=== PATIENT | male | born 1935 | race Caucasian/White ===

== ENCOUNTER 2016-11-04 16:32 | Inpatient (IN) | payer OTHER ==
[~2016-11-04] VITALS: Ht 185.4 cm; Wt 76.2 kg
--- NOTE | ~2016-11-04 | D ---
[facility] [place] [address] DISCHARGE SUMMARY Name: DUKE VILLAGOMEZ Room #: 455-P [facility] IN M.R.#: [id number] Admission: 11/04/16 Attend Phys: Kamaljit Stroud MD Discharge: 11/10/16 Date of : 36 Report #: [id number] THIS REPORT FOR: //name// CC: Harini Stroud DATE OF SERVICE: 11/10/2016 TYPE OF DICTATION: Discharge summary. After xqgz-mk-baog encounter, I did see the patient and examined him on the day of discharge. DISCHARGE DIAGNOSES: 1. small-bowel obstruction managed medically. 2. Chronic constipation. 3. Diabetes. 4. 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 5. Neurogenic bladder. 6. Gastroesophageal reflux disease. 7. Chronic kidney disease. 8. Peripheral neuropathy. 9. Depression. 10. Hypokalemia, resolved. 11. Chronic suprapubic catheter. DISCHARGE MEDICATIONS: See discharge summary. HOSPITAL COURSE: The patient was admitted to the hospital secondary to a small-bowel obstruction, abdominal pain and GI and surgery teams were consulted to see the patient. The patient started on n.p.o. IV fluids and his small-bowel obstruction was managed medically and it was resolved completely. At this point, the surgery recommended that he go under aggressive treatment for constipation to continue that to prevent recurrence of small-bowel obstruction. At the same time, the patient was doing fine and he is stable and he is going home to to nursing home facility after treated. His hemoglobin is currently stable and his creatinine is 1.5, almost near baseline. <ELECTRONICALLY SIGNED> By: Harini Morgan MD 11/11/16 1438 1349 1721 Harini Morgan MD /nt
--- NOTE | ~2016-11-04 | EKG ---
[place] [address] [facility] [place] [address] ELECTROCARDIOGRAM REPORT Name: DUKE VILLAGOMEZ Piter Room #: 455-P ADM IN M.R.#: [id number] Admission: 11/04/16 Attend Phys: Kamaljit Stroud MD Discharge: Date of : 36 Report #: [id number] THIS REPORT FOR: //name// [facility] ED Test Date: 2016-11-04 Test Time: 16:53:24 Pat Name: DUKE VILLAGOMEZ Department: Room: [facility] Gender: M Sleeve Tailor: Massimo MARTINEZ : 1935 Requested By: Randi Ga Order Number: [id number] MD: Mateo Miranda Measurements Intervals [place] Rate: 91 P: -73 CT: 242 QRS: 0 QRSD: 103 T: 74 QT: 370 QTc: 456 Interpretive Statements Sinus or ectopic atrial rhythm Prolonged CT interval Nonspecific ST segment abnormality Compared to ECG 04/20/2016 15:54:48 QT interval has shortened Electronically Signed On 11-06-2016 14:06:38 TABLE SETTER by Mateo Miranda [email or web address] <ELECTRONICALLY SIGNED> By: Mateo Miranda MD, [facility] 11/06/16 1406 1653 165 Mateo Miranda MD, [facility] /EPI
--- NOTE | ~2016-11-04 | HC ---
[facility] [place] [address] CONSULTATION Name: DUKE VILLAGOMEZ Room #: 455-P [facility] IN ..#: [id number] Admission: 11/04/16 Attend Phys: Kamaljit Stroud MD Discharge: Date of : 36 Report #: [id number] THIS REPORT FOR: //name// CC: Nakul Stroud DATE OF SERVICE: 11/08/2016 REASON FOR CONSULTATION: Advanced renal insufficiency in this 81-year-old diabetic male with bilateral below the knee amputation. HISTORY OF PRESENT ILLNESS: The patient has a longstanding history of diabetes mellitus. He is a resident at [facility]. He presented to the Emergency Room on the day of admission with nausea, vomiting and diarrhea. Evaluation revealed severe obstipation effectively producing a small-bowel obstruction. The patient has been managed conservatively during the course of this hospitalization. His GI status has improved after significant enema therapy. He has also developed coffee-ground emesis and is presently on a proton pump inhibitor. He has a known history of neurogenic bladder. A renal ultrasound was performed earlier today revealing no evidence of hydronephrosis. Urinalysis has not yet been obtained. 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 MEDICATIONS ON ADMISSION: Include bisacodyl, artificial tears, aspirin, Protonix, Synthroid, Motrin, Levemir, Reglan, Carafate, potassium, Neurontin, vitamin C, Risperdal, Zofran, milk of magnesia, senna, iron, renal caps and acidophilus. ALLERGIES: Reported to AMPICILLIN, MEPERIDINE, PENICILLIN, SIMVASTATIN, SULFA. PERSONAL AND SOCIAL HISTORY: The patient is a [facility] resident. He is retired. He does not smoke, use alcohol or have any history of substance abuse. REVIEW OF SYSTEMS: Remarkable for chronic constipation and recent vomiting and diarrhea. PHYSICAL EXAMINATION: GENERAL: Reveals a well-developed, well-nourished, elderly male who appears chronically ill, but in no acute distress. VITAL SIGNS: Blood pressure 149/67, temperature 98.4, pulse 82, respirations 20. SKIN: Warm and dry. The legs are surgically absent below the knees bilaterally [address] [address] CONSULTATION Name: DUKE VILLAGOMEZ Room #: 455-P [facility] IN M.R.#: [id number] Admission: 11/04/16 Attend Phys: Kamaljit Stroud MD Discharge: Date of : 36 Report #: [id number] with well-healed stumps. There is no evidence of edema or cellulitis. There is no gross adenopathy present. HEENT: The head is normocephalic and atraumatic. The sclerae are white. The pharynx is benign. NECK: Supple. LUNGS: Villagomez are grossly clear to percussion and auscultation. CARDIOVASCULAR: Reveals a regular rate and rhythm without rub. ABDOMEN: Soft and nontender. There is a suprapubic catheter in place. A Granda catheter is draining cloudy urine. NEUROLOGIC: Reveals the patient to be a fair historian. His vision is diminished. His examination is otherwise nonfocal. LABORATORY STUDIES: Available at this time include sodium 147, potassium 3.8, chloride 111, CO2 24, BUN 53, creatinine 2.5, glucose 85. White blood cell count 7500, hemoglobin 8.3, hematocrit 24.7, platelet count 203,000. Urinalysis is not available. Renal ultrasound reveals no evidence of hydronephrosis. ASSESSMENT: Chronic kidney disease in the setting of longstanding diabetes mellitus. Previous urinalysis which is available for review dated 05/2016 reveals 2+ protein, 1+ leukocytes. ASSESSMENT AND PLAN: 1. I strongly suspect a significant element of underlying diabetic nephropathy related to his longstanding diabetes mellitus and hypertension and further suggested by his documented proteinuria. He has neurogenic bladder with obstructive uropathy, status post suprapubic catheter placement. Renal ultrasound performed today revealed no evidence of hydronephrosis. His creatinine value has actively improved somewhat, though the last chemistry values are from yesterday. We will obtain a current urinalysis as well as repeat renal profile. 2. Hypernatremia. I will change his maintenance IV fluids from normal saline to half normal saline in view of his developing hypernatremia. 3. Diabetes mellitus. 4. Gastrointestinal issues ongoing including severe obstipation, upper gastrointestinal bleed with coffee-ground emesis and diarrhea. 5. Hypertension. 6. Peripheral neuropathy. 7. Neurogenic bladder with suprapubic catheter placement. PLAN: We will follow the patient while hospitalized with you. Please see orders. <ELECTRONICALLY SIGNED> By: Vinod Sutton MD 11/08/161951 180 36 Vinod Sutton MD /nt
--- NOTE | ~2016-11-04 | HC ---
[facility] [place] [address] CONSULTATION Name: DUKE VILLAGOMEZ Piter Room #: 455-P [facility] IN ..#: [id number] Admission: 11/04/16 Attend Phys: Kamaljit Stroud MD Discharge: 11/10/16 Date of : 36 Report #: [id number] THIS REPORT FOR: //name// CC: Nakul Stroud DATE OF SERVICE: 11/05/2016 REASON FOR CONSULTATION: Small-bowel obstruction. HISTORY OF PRESENT ILLNESS: The patient is an 81-year-old male patient with history of bilateral BKA, who has been admitted multiple times over the past year to [facility] with recurrent constipation and small-bowel obstruction picture. He was brought in again the last night to the emergency department via emergency medical services with several episodes of nausea and vomiting as well as reported hematemesis. The patient has a known history of severe esophagitis and issues with chronic constipation. He has been admitted to multiple hospitals around the [facility] with these issues as well as extensive medical history. His past medical history includes diabetes, gastroesophageal reflux disease, hypertension, peripheral vascular disease, diabetes mellitus, chronic kidney disease, hypertension, peripheral neuropathy, depression, anemia, arthritis, history of an indwelling suprapubic catheter, history of encephalopathy. On this occasion, workup in the emergency department entailed a CT scan of the abdomen and pelvis which demonstrated significant amount of stool within the distal colon and rectum as well as a potential small-bowel obstruction with multiple loops of distended proximal small bowel. Transition zone was not obviously identifiable. Attempt at placement of a nasogastric tube for decompression was performed; however, this was unsuccessful and the patient refused any further attempts. General Surgery has been consulted for small-bowel obstruction. PAST MEDICAL HISTORY: As described above, diabetes, peripheral vascular disease, chronic kidney disease, hypertension, peripheral neuropathy, gastroesophageal reflux disease, major depressive disorder, chronic anemia, arthritis, neurogenic bladder, chronic constipation, dementia, hypothyroidism. EGD in November 2014 showed grade D esophagitis with gastritis and erosions, which may account for the hematemesis which was reported. PAST SURGICAL HISTORY: Positive for bilateral BKA and suprapubic catheter placement. No prior abdominal operations to the patient's knowledge otherwise. ALLERGIES: Include AMPICILLIN, MEPERIDINE, PENICILLIN, SIMVASTATIN, SULFA, TRIMETHOPRIM, and TYLENOL. MEDICATIONS: Upon this admission include bisacodyl, polyvinyl alcohol or artificial tears, aspirin 81 mg daily, Protonix, Synthroid, Motrin, Levemir, [facility] [address] [place] [address] CONSULTATION Name: DUKE VILLAGOMEZ Room #: 455-P [facility] IN [facility].#: [id number] Admission: 11/04/16 Attend Phys: Kamaljit Stroud MD Discharge: 11/10/16 Date of : 36 Report #: [id number] Reglan, Carafate, potassium supplement, Neurontin, vitamin C, Risperdal, Zofran, milk of magnesia, sore throat lozenges, senna, iron sulfate tablets, acidophilus, Folate. SOCIAL HISTORY: The patient lives in [facility], negative for drug or alcohol use. He has been a previous smoker, greater than 1 year ago. REVIEW OF SYSTEMS: CONSTITUTIONAL: Negative for fevers, chills or unwanted weight loss. OCULAR: He is blind in one eye, no new visual change. No photophobia. HEENT: Has had a previous nasal fracture which gives difficulty placing NG tubes, the patient reports no recent nasal discharge or sinusitis. PULMONARY: No productive cough, no hemoptysis. CARDIOVASCULAR: No chest pain or palpitation. GASTROINTESTINAL: Positive for nausea, vomiting and diarrhea, positive for chronic constipation, positive for generalized abdominal pain. GENITOURINARY: Has an indwelling suprapubic catheter with history of neurogenic bladder. MUSCULOSKELETAL: Positive for bilateral previous BKA. PSYCHIATRIC: History of major depression, no recent new anxiety or hallucinations. ENDOCRINE: History of diabetes mellitus. PHYSICAL EXAMINATION: GENERAL: The patient is awake, alert and oriented. He is in no acute distress at this time. He does give some history, but is confused at times. VITAL SIGNS: He is afebrile and normotensive. HEENT: Shows a nonfunctional left eye. NECK: Supple. LUNGS: No respiratory distress. Lungs are slightly coarse bilateral. ABDOMEN: Soft and nontender to palpation at this time. He is morbidly obese. No obvious palpable hernia. Suprapubic catheter is in place with clear urine output. EXTREMITIES: Show bilateral BKA. No obvious cyanosis. NEUROLOGIC: Unremarkable. LABORATORY STUDIES: Reviewed. Complete blood count showed a white count of 15, hemoglobin 11.2, platelets of 296, PT of 10.5. Complete metabolic profile showed total bilirubin 0.4, creatinine of 2.8, glucose of 268, AST of 16, ALT of 17, alkaline phosphatase of 89. Occult blood was negative. CT scan of the abdomen and pelvis with contrast was reviewed in detail. This shows fluid filling the proximal colon with large amount of stool in the distal colon and rectal vault packed with stool. Measurements showed that approximately 1200 mL at least of stool packed in the rectum. No obvious free air. Suprapubic catheter is in place. Bladder is collapsed. Diffuse fluid filling the stomach and duodenum. Dilatation of the proximal jejunum is also noted. Several distal [address] [address] CONSULTATION Name: DUKE VILLAGOMEZ Room #: 455-P [facility] IN [facility].#: [id number] Admission: 11/04/16 Attend Phys: Kamaljit Stroud MD Discharge: 11/10/16 Date of : 36 Report #: [id number] small bowel loops appear more decompressed. Gallbladder has noted sludge, no changes consistent with acute cholecystitis are noted. IMPRESSION AND PLAN: An 81-year-old male patient with extensive past medical history and recurrent multiple admissions for severe constipation and colorectal fecal impaction as well as with multiple episodes of recurrent small-bowel obstruction which have always resolved with conservative measures. To my knowledge, no prior abdominal operations have been performed for the patient. On many occasions, discussion has been held regarding potential diagnostic laparoscopy for the small-bowel obstruction clinical pictures. On each occasion, the patient continues to state that he does not wish to undergo an abdominal operation. He also refuses nasogastric tube decompression at this time. This was discussed with the patient by various members of the medical staff and the patient is persistent that he does not wish for this to be performed despite our recommendations. 1. Would proceed with fecal disimpaction with administration of serial enemas to free up the distal colon. 2. Keep the patient in upright position should further nausea and emesis result as aspiration is a significant risk in this situation. 3. No immediate surgical intervention recommended. We will further discuss this with the patient throughout his course. It is expected that the patient will continue to refuse operative intervention as he is in no acute distress at this time and as he has stated many times that he does not wish for this course of action. Consultation very much appreciated. We will continue to follow closely and make further recommendations based on clinical status. <ELECTRONICALLY SIGNED> By: John Reardon MD 11/16/16 1006 1547 [id number] John Reardon MD /nt
--- NOTE | ~2016-11-04 | HC ---
[facility] [place] [address] CONSULTATION Name: DUKE VILLAGOMEZ Room #: 455-P ADM IN .R.#: [id number] Admission: 11/04/16 Attend Phys: Kamaljit Stroud MD Discharge: Date of : 36 Report #: [id number] THIS REPORT FOR: //name// CC: Nakul Sullivan DO Kamaljit Stroud REASON FOR CONSULTATION: The patient is an 81-year-old male with coffee-ground emesis. HISTORY OF PRESENT ILLNESS: The patient is known to me from previous admissions. He has had multiple admissions here at [facility]. He had admission for similar problems this past May. The patient is known to have a longstanding history of constipation and we have seen him for this problem in the past. On this occasion, he was brought to [facility] from [facility] for nausea, vomiting and diarrhea. He reports he has been having dark stools for 3 days. He also reports he has been vomiting dark blackish material. Upon presentation to [facility], he had a CT of the abdomen and pelvis. Interesting findings were similar to the CT he had in May of this past year. Gallbladder is unremarkable. There is a large amount of fluid filling the stomach and lower esophagus. Also, debris within the stomach. There is diffuse fluid filling of the duodenum up to 3.8 cm. There is dilation of the proximal jejunum consistent with a mid small bowel obstruction. The distal small bowel is normal. There is also a large amount of stool in the colon, particularly the rectum with a large amount of stool. This is similar to what CT showed last May. KUB today still is suggestive of a mid small bowel obstruction. The patient had some coffee-ground emesis on admission. He has not had any stools. The patient denies abdominal pain at this time. PAST MEDICAL HISTORY AND PAST SURGICAL HISTORY: He has insulin-dependent diabetes, peripheral vascular disease. He has had bilateral tmcxg-gyt-lkyx amputations. He has chronic kidney disease, high blood pressure and gastroesophageal reflux. Upper endoscopy a year or two ago showed severe distal esophagitis. He also has hypothyroidism. He has been treated for depression. He has peripheral neuropathy and neurogenic bladder. He has an indwelling bladder catheter. He has had colonoscopies in the past, although the time of his last exam is not entirely clear. In addition to above, he has had temporal artery biopsy. He had melanoma excised from his back. Suprapubic catheter is placed and also multiple ____ bilateral xuqeq-ogy-bbeh amputations. ALLERGIES: MEPERIDINE, PENICILLIN, SULFA, AMPICILLIN, SULFAMETHOXAZOLE, TRIMETHOPRIM and SIMVASTATIN. [address] [address] CONSULTATION Name: DUKE VILLAGOMEZ Piter Room #: 455-P [facility] IN M.R.#: [id number] Admission: 11/04/16 Attend Phys: Kamaljit Stroud MD Discharge: Date of : 36 Report #: [id number] USUAL HOME MEDICATIONS: Ascorbic acid 500 mg daily, aspirin 81 mg daily, throat lozenges as needed, bisacodyl rectally as needed for constipation, Keflex 500 mg b.i.d., Neurontin 100 mg daily, ibuprofen 400 mg b.i.d., insulin 10 units subcutaneously, lactobacillus b.i.d., Synthroid 0.025 mg daily, milk of magnesia daily, metoclopramide 5 mg a.c. and at bedtime, ondansetron 4 mg every 4 hours as needed, pantoprazole 40 mg b.i.d., polyethylene glycol 17 g daily, artificial tears, potassium chloride, Risperdal 0.5 mg at bedtime, Senna 2 tablets daily, sucralfate 10 mL before meals and at bedtime, and [place] softgel vitamins. FAMILY HISTORY: No family history of colon cancer. SOCIAL HISTORY: Lives in a nursing facility. He does not smoke or consume alcohol. REVIEW OF SYSTEMS: Obtainable as best as I can from the patient. CENTRAL NERVOUS SYSTEM: No focal weakness, no loss of consciousness. He has neuropathy. HEENT: He is blind in his left eye. PULMONARY: He denies cough, pneumonia or tuberculosis. CARDIOVASCULAR: Denies chest pain, chest tightness or palpitations. GASTROINTESTINAL: Recent coffee-ground emesis. Recent black stools. Chronic constipation. Severe esophagitis. He also may have a component of gastroparesis. GENITOURINARY: Indwelling suprapubic catheter. MUSCULOSKELETAL: Bilateral seprm-qeo-ydpy amputations. SKIN: Without rashes. PSYCHIATRIC: He has been treated for depression. ENDOCRINE: He has diabetes and thyroid disease. HEMATOLOGIC: Skin cancer removed. No bleeding disorder. PHYSICAL EXAMINATION: GENERAL: This is a well-developed and well-nourished male who is awake and alert, in no acute distress. He is nearly fully oriented. He knows today's date. He cannot name the facility, but he knows it is in a hospital. VITAL SIGNS: Blood pressure 138/60 and pulse 73. HEENT: He is anicteric. Pupils equal and round. Oropharynx is clear. NECK: Supple. CHEST: Clear. HEART: Regular rate and rhythm, normal S1 and normal S2. ABDOMEN: He is overweight, but his abdomen is soft. I do not appreciate any tenderness or mass effect. Occasionally, a tinkling bowel sound is heard. Overall, abdomen is quite quiet. RECTAL: Not done at this time. ____ stool in the rectal vault. EXTREMITIES: Bilateral yopmc-clm-lpud amputations which are well healed. SKIN: Without rashes. NEUROLOGIC: He is oriented to person, place and time. He moves all 4 [facility] [email or web address] [address] CONSULTATION Name: DUKE VILLAGOMEZ Room #: 455-P [facility] IN [facility]#: [id number] Admission: 11/04/16 Attend Phys: Kamaljit Stroud MD Discharge: Date of : 36 Report #: [id number] extremities well. ASSESSMENT: 1. Partial small bowel obstruction, mid bowel, recurrent. 2. Chronic constipation with probable fecal impaction. 3. Diabetes. 4. Peripheral vascular disease with bilateral trqga-eir-udqg amputations. 5. Neurogenic bladder. 6. History of reflux and severe esophagitis. 7. Chronic kidney disease. 8. Peripheral neuropathy. 9. Depression. COMMENT: Case discussed with Dr. John Reardon. The patient is well known to him. I see 2 issues here, one is small bowel obstruction and the other is chronic constipation. I do not believe the fecal impaction is causing his proximal small bowel stomach dilation and fluid retention. The patient refused to allow a nurse to place an NG tube. I spoke with the patient and asked him to allow me at least to attempt to place an NG tube. He absolutely refuses. He has had NG tubes in the past, although he says one cannot be placed because of a previous nose injury. I asked him multiple times and explained to him that if his small bowel obstruction worsens, he could potentially have a perforation, which would be a far worse outcome than a nasogastric tube. He tells me he would rather than have a tube and absolutely refuses. RECOMMENDATIONS: 1. Conservative care of this patient at this time. 2. Try to avoid surgery if at all possible. 3. I agree with enemas for constipation and fecal disimpaction. 4. May require manual disimpaction. 5. Continue PPI. 6. Follow up abdominal films. <ELECTRONICALLY SIGNED> By: Gavin Tony MD 11/06/16 1104 1113 2316 Gavin Tony MD /nt
[~2016-11-04 16:32] MED LIST: ACETAMINOPHEN325 M1 PO; ACIDOPHILUS1 EAC3; ACIDOPHILUS1 EACH PO; ADULT LOW DOSE81 MG PO; AMBIEN 5 MG TABL5 M1 PO; ARTIFICIAL TEAR15 M1 OPHTHALMIC; ASPIRIN EC81 M1 PO; ATIVAN0.5 MG PO; BACTROBAN22 GM; BISAC-EVAC10 MG; BISAC-EVAC10 MG RC; BISAC-EVAC10 MG RECTAL; BISACODYL SUPP10 MG RECTAL; CARAFATE 1 GM TA1 G1 PO; CARVEDILOL3.125 MG PO; CATHFLO ACT2 MG/VIA1; CEFTIN 250 MG250 MG PO; CEFUROXIME500 MG PO; CELEXA 20 MG TA20 M1 PO; CELEXA 20 MG TA20 MG PO; CEPACOL SORE T1 EAC7 MUCOUS MEM; CEPACOL SORE T1 EAC7 PO; CEPACOL SORE T1 EAC8 PO; COLACE100 MG PO; COREG PO; CYCLOBENZAPRINE5 MG PO; DAILY VITAMIN1 EAC4 PO; DIABETIC T200 MG/5 M; DOXYCYCLINE 10100 MG PO; DUONEB 2.5-0.5 M3 ML; DUONEB 2.5-0.5 M3 ML INH; EXELON1 EAC1; FAMOTIDINE20 MG PO; FERRO-TIME325 MG PO; FLONASE 0.05%50 MCG NASAL; GABAPENTIN100 MG PO; GLUCAGEN1 M2 IM; GLUCAGON IM; GLUCERNA1 EACH PO; GLYCOLAX POWDER17 G1 PO; GUIATUSSIN DAC473 ML PO; GYNE-LOTRIMIN-745 GM VG; HEPARIN; HYDRALAZINE 2525 M1 GT; HYDROCODON-ACE1 EAC7 PO; IBUPROFEN 400400 M1; IBUPROFEN 400400 M2 PO; INVANZ IV; INVANZ1 GM IV; IRON325 PO; KEFLEX500 MG PO; KLOR-CON 1010 MEQ PO; LEVAQUIN 500 M500 M2 PO; LEVEMIR SUBQ; LEVOTHROID25 MCG PO; LEVOTHYROXIN0.025 MG PO; LOPERAMIDE 2 MG2 M1; LORATIDINE 10 M10 M1 PO; LOW DOSE ASPIRI81 M1 PO; MAGOX 400400 MG PO; METOCLOPRAMIDE 55 MG PO; METOCLOPRAMIDE10 MG PO; METRONIDAZOLE500 M4 PO; MILK OF MA2400 MG/10; MIRALAX17 GM PO; MIRALAX255 GM; MIRALAX255 GM PO; MUCINEX600 MG PO; MULTIVITAMINS PO; MULTIVITAMINS1 EAC7 PO; NORCO 5-325 TA1 EACH PO; NORVASC10 MG PO; NOVOLOG100 UNIT/1; NYSTATIN 100,0015 G1; ONDANSETRON HCL4 M2; ONDANSETRON HCL4 M2 IV; ONDANSETRON HCL4 M2 PO; PEPCID AC20 M1 PO; PHENADOZ25 MG; PHENADOZ25 MG RECTAL; POTASSIUM20 PO; PROMETHAZINE HC25 MG RECTAL; PROTONIX40 M1 PO; REGLAN 10 MG TA10 MG PO; REGLAN 5 MG TAB5 MG PO; RENO CAPS SOFTGE1 MG; RISPERDAL0.25 MG PO; SENNA S TABLET1 EACH PO; SENNA8.6 MG; SENOKOT-S1 TA1 PO; SORE THROAT LO1 EAC3; SSD CREAM 1% 5050 G1 TOP; SSD CREAM 1% 5050 GM; SYNTHROID25 MCG PO; VANCOMYCIN125 MG/2.5; VITAMIN C + RO500 MG PO; VITAMIN C120 GM; VITAMINC500 PO; WELLBUTRIN SR150 MG PO; ZINC SULFATE 2220 MG PO; ZYRTEC 10 MG TA10 MG PO; [UNRECOGNIZED DRUG - OTHER] IV
[2016-11-04 16:33] VITALS: BP 141/74
[2016-11-04 17:09] LABS: ABSOLUTE NEUTROPHILS 11.9 thou/uL (1.4-8.2); BASOPHILS 0.7 % (0.0-2.0); HEMATOCRIT 33.8 % (42.0-52.0); HEMOGLOBIN 11.2 gm/dL (14.0-18.0); LYMPHOCYTES 14.5 % (24.0-44.0); MCH 25.8 pg (26.0-34.0); MCHC 33.1 % (28.0-37.0); MCV 77.9 fL (80.0-100.0); MONOCYTES 5.5 % (1.0-8.0); PLATELET COUNT 296 thou/uL (150-400); POLYS 79.3 % (36.0-66.0); RBC 4.34 mil/uL (4.50-6.00); RDW 16.7 % (10.5-14.5)
[2016-11-04 17:11] LABS: MANUAL DIFF NO
[2016-11-04 17:19] LABS: ANION GAP 11 mmol/L (7-16); BUN 52 mg/dL (7-18); CALCIUM 9.3 mg/dL (8.5-10.1); CHLORIDE 103 mmol/L (98-107); CO2 31 mmol/L (21-32); CREATININE 2.8 mg/dL (0.6-1.3); GLUCOSE 268 mg/dL (70-99); POTASSIUM 4.8 mmol/L (3.5-5.1); SODIUM 145 mmol/L (136-145)
[2016-11-04 17:27] LABS: ALBUMIN 3.6 g/dL (3.4-5.0); ALKALINE PHOSPHATASE 89 U/L (46-116); PROTIME 10.5 Seconds (9.3-11.4); SGOT 16 U/L (15-37); SGPT 17 U/L (30-65); TOTAL BILIRUBIN 0.4 mg/dL (<0.1-1.0); TROPONIN-I < 0.04 ng/mL (<0.04-0.07)
[2016-11-04 20:59] VITALS: BP 109/58
[2016-11-04 23:20] VITALS: BP 107/55
[2016-11-05] MEDS ORDERED: GABAPENTIN 100100 MG PO (02:49)
[2016-11-05 03:32] VITALS: BP 105/59
[2016-11-05 04:42] LABS: ABSOLUTE NEUTROPHILS 6.9 thou/uL (1.4-8.2); BASOPHILS 0.7 % (0.0-2.0); EOSINOPHILS 0.4 % (0.0-3.0); HEMATOCRIT 30.9 % (42.0-52.0); LYMPHOCYTES 26.4 % (24.0-44.0); MCH 25.9 pg (26.0-34.0); MCHC 32.3 % (28.0-37.0); MCV 80.1 fL (80.0-100.0); MONOCYTES 8.1 % (1.0-8.0); PLATELET COUNT 276 thou/uL (150-400); POLYS 64.4 % (36.0-66.0); RBC 3.86 mil/uL (4.50-6.00); RDW 16.9 % (10.5-14.5); WBC 10.7 thou/uL (4.0-11.0)
[2016-11-05 04:52] LABS: ALBUMIN 3.3 g/dL (3.4-5.0); CREATININE 2.8 mg/dL (0.6-1.3); MAGNESIUM 2.4 mg/dL (1.8-2.4); POTASSIUM 4.3 mmol/L (3.5-5.1); TOTAL BILIRUBIN 0.4 mg/dL (<0.1-1.0); TOTAL PROTEIN 7.5 g/dL (6.4-8.2)
[2016-11-05 04:53] LABS: MANUAL DIFF NO
[2016-11-05 08:00] VITALS: BP 138/60
[2016-11-05 12:53] VITALS: BP 130/57
[2016-11-05 15:30] VITALS: BP 131/69
[2016-11-05 15:43] LABS: HEMATOCRIT 31.3 % (42.0-52.0)
[2016-11-05 18:56] LABS: HEMATOCRIT 29.1 % (42.0-52.0); HEMOGLOBIN 9.4 gm/dL (14.0-18.0)
[2016-11-05 19:58] VITALS: BP 129/54
[2016-11-06 03:39] VITALS: BP 131/62
[2016-11-06 05:45] LABS: CALCIUM 8.4 mg/dL (8.5-10.1); CREATININE 3.1 mg/dL (0.6-1.3); POTASSIUM 4.1 mmol/L (3.5-5.1)
[2016-11-06 05:47] LABS: HEMATOCRIT 27.8 % (42.0-52.0); HEMOGLOBIN 8.9 gm/dL (14.0-18.0); MCH 26.2 pg (26.0-34.0); MCHC 32.1 % (28.0-37.0); MCV 81.6 fL (80.0-100.0); RBC 3.41 mil/uL (4.50-6.00); RDW 16.7 % (10.5-14.5); WBC 8.7 thou/uL (4.0-11.0)
[2016-11-06 08:00] VITALS: BP 128/62
[2016-11-06 12:00] VITALS: BP 145/68
[2016-11-06 20:00] VITALS: BP 126/51
[2016-11-07 04:00] VITALS: BP 105/54
[2016-11-07 05:56] LABS: BASOPHILS 0.7 % (0.0-2.0); HEMATOCRIT 24.4 % (42.0-52.0); HEMOGLOBIN 7.8 gm/dL (14.0-18.0); LYMPHOCYTES 24.7 % (24.0-44.0); MCH 26.3 pg (26.0-34.0); MCHC 32.1 % (28.0-37.0); MONOCYTES 6.7 % (1.0-8.0); PLATELET COUNT 207 thou/uL (150-400); POLYS 64.9 % (36.0-66.0); RBC 2.97 mil/uL (4.50-6.00); RDW 16.6 % (10.5-14.5); WBC 7.7 thou/uL (4.0-11.0)
[2016-11-07 06:17] LABS: ALBUMIN 2.9 g/dL (3.4-5.0); CALCIUM 7.3 mg/dL (8.5-10.1); CREATININE 2.5 mg/dL (0.6-1.3); POTASSIUM 3.8 mmol/L (3.5-5.1); TOTAL BILIRUBIN 0.2 mg/dL (<0.1-1.0); TOTAL PROTEIN 5.9 g/dL (6.4-8.2)
[2016-11-07 06:26] LABS: MANUAL DIFF NO
[2016-11-07 07:55] VITALS: BP 119/50
[2016-11-07 12:00] VITALS: BP 134/51
[2016-11-07 16:00] VITALS: BP 139/51
[2016-11-07 19:48] VITALS: BP 156/58
[2016-11-08 02:45] VITALS: BP 136/66
[2016-11-08 08:00] VITALS: BP 136/62
[2016-11-08 11:20] LABS: ABSOLUTE NEUTROPHILS 4.7 thou/uL (1.4-8.2); BASOPHILS 0.8 % (0.0-2.0); EOSINOPHILS 4.2 % (0.0-3.0); HEMATOCRIT 24.7 % (42.0-52.0); HEMOGLOBIN 8.3 gm/dL (14.0-18.0); LYMPHOCYTES 25.3 % (24.0-44.0); MANUAL DIFF NO; MCH 26.6 pg (26.0-34.0); MCHC 33.7 % (28.0-37.0); MCV 78.7 fL (80.0-100.0); MONOCYTES 7.1 % (1.0-8.0); PLATELET COUNT 203 thou/uL (150-400); POLYS 62.6 % (36.0-66.0); RBC 3.14 mil/uL (4.50-6.00); WBC 7.5 thou/uL (4.0-11.0)
[2016-11-08 12:15] VITALS: BP 162/68
[2016-11-08 16:00] VITALS: BP 149/67
[2016-11-08 18:37] LABS: URINE BILIRUBIN NEGATIVE (Negative); URINE BLOOD 1+ (Negative); URINE COLOR YELLOW; URINE GLUCOSE-RANDOM* NEGATIVE (Negative); URINE KETONES 1+ (Negative); URINE NITRITE NEGATIVE (Negative); URINE PROTEIN (DIPSTICK) 1+ (Negative); URINE SPECIFIC GRAVITY 1.015 (1.003-1.035); URINE UROBILINOGEN 0.2 E.U./dl (0.2-1.0)
[2016-11-08 18:45] LABS: BACTERIA 1-9 Few /HPF (None Seen); CASTS None Seen /LPF (None Seen); CRYSTALS None Seen /LPF (None Seen); SQUAMOUS 0-3 Few /LPF (0-3); URINE RBC 0-2 Rare /HPF (0-2)
[2016-11-08 19:49] VITALS: BP 148/66
[2016-11-09 04:46] VITALS: BP 138/60
[2016-11-09 05:08] LABS: URINE CREATININE-RANDOM* 41.3 mg/dL (Not Estab.); URINE PROTEIN-RANDOM* 38.4 mg/dL (Not Estab.)
[2016-11-09 05:37] LABS: ABSOLUTE NEUTROPHILS 4.1 thou/uL (1.4-8.2); BASOPHILS 0.7 % (0.0-2.0); EOSINOPHILS 4.6 % (0.0-3.0); HEMATOCRIT 23.9 % (42.0-52.0); LYMPHOCYTES 31.9 % (24.0-44.0); MCH 26.3 pg (26.0-34.0); MCHC 33.7 % (28.0-37.0); MONOCYTES 7.9 % (1.0-8.0); PLATELET COUNT 225 thou/uL (150-400); POLYS 54.9 % (36.0-66.0); RBC 3.06 mil/uL (4.50-6.00); RDW 16.1 % (10.5-14.5); WBC 7.4 thou/uL (4.0-11.0)
[2016-11-09 05:39] LABS: MANUAL DIFF NO
[2016-11-09 05:46] LABS: ALBUMIN 2.7 g/dL (3.4-5.0); CALCIUM 7.5 mg/dL (8.5-10.1); CREATININE 1.5 mg/dL (0.6-1.3); PHOSPHORUS 2.4 mg/dL (2.5-4.9); POTASSIUM 3.1 mmol/L (3.5-5.1); TOTAL BILIRUBIN 0.3 mg/dL (<0.1-1.0); TOTAL PROTEIN 6.1 g/dL (6.4-8.2)
[2016-11-09 08:07] VITALS: BP 147/66
[2016-11-09 11:43] VITALS: BP 127/58
[2016-11-09 15:44] VITALS: BP 130/65
[2016-11-09 16:03] LABS: URINE BILIRUBIN NEGATIVE (Negative); URINE BLOOD TRACE (Negative); URINE COLOR YELLOW; URINE GLUCOSE-RANDOM* 1+ (Negative); URINE KETONES NEGATIVE (Negative); URINE LEUKOCYTES-REFLEX 1+ (Negative); URINE PROTEIN (DIPSTICK) NEGATIVE (Negative); URINE SPECIFIC GRAVITY <= 1.005 (1.003-1.035); URINE UROBILINOGEN 0.2 E.U./dl (0.2-1.0)
[2016-11-09 16:10] LABS: CASTS None Seen /LPF (None Seen); CRYSTALS None Seen /LPF (None Seen); SQUAMOUS 0-3 Few /LPF (0-3); URINE RBC 0-2 Rare /HPF (0-2)
[2016-11-09 16:51] LABS: MAGNESIUM 1.6 mg/dL (1.8-2.4); POTASSIUM 3.5 mmol/L (3.5-5.1)
[2016-11-09 19:52] VITALS: BP 119/51
[2016-11-10 04:00] VITALS: BP 127/64
[2016-11-10 07:51] VITALS: BP 123/60
[2016-11-10 08:15] LABS: ABSOLUTE NEUTROPHILS 4.1 thou/uL (1.4-8.2); BASOPHILS 0.7 % (0.0-2.0); EOSINOPHILS 5.3 % (0.0-3.0); HEMATOCRIT 25.3 % (42.0-52.0); HEMOGLOBIN 8.4 gm/dL (14.0-18.0); MCH 26.2 pg (26.0-34.0); MCHC 33.3 % (28.0-37.0); MCV 78.6 fL (80.0-100.0); MONOCYTES 7.3 % (1.0-8.0); PLATELET COUNT 234 thou/uL (150-400); POLYS 54.7 % (36.0-66.0); RBC 3.22 mil/uL (4.50-6.00); RDW 16.5 % (10.5-14.5); WBC 7.5 thou/uL (4.0-11.0)
[2016-11-10 08:16] LABS: MANUAL DIFF NO
[2016-11-10 08:25] LABS: ALBUMIN 2.7 g/dL (3.4-5.0); CALCIUM 7.8 mg/dL (8.5-10.1); CREATININE 1.5 mg/dL (0.6-1.3); POTASSIUM 3.9 mmol/L (3.5-5.1)
[2016-11-10 12:01] VITALS: BP 128/72
[2016-11-10 15:50] VITALS: BP 118/62
== END 2016-11-10 16:00 | DRG 388 ==
LOC: ER 16:32 → 4W 18:48 → EROBS 18:48 → 4W 19:19
PROVIDERS: Family Medicine; Hospitalist; Internal Medicine Nephrology; Nurse Practitioner; Nurse Practitioner Family; Physician Assistant; Surgery
DX: K56.60 Unspecified intestinal obstruction (principal); E43 Unspecified severe protein-calorie malnutrition; N17.9 Acute kidney failure, unspecified; K92.2 Gastrointestinal hemorrhage, unspecified; E87.0 Hyperosmolality and hypernatremia; K21.9 Gastro-esophageal reflux disease without esophagitis; I10 Essential (primary) hypertension; E11.51 Type 2 diabetes mellitus with diabetic peripheral angiopathy without gangrene; I12.9 Hypertensive chronic kidney disease with stage 1 through stage 4 chronic kidney disease, or unspecified chronic kidney disease; F32.9 Major depressive disorder, single episode, unspecified; M19.90 Unspecified osteoarthritis, unspecified site; Z89.512 Acquired absence of left leg below knee; Z89.511 Acquired absence of right leg below knee; Z88.0 Allergy status to penicillin; Z88.8 Allergy status to other drugs, medicaments and biological substances; Z79.82 Long term (current) use of aspirin; Z79.899 Other long term (current) drug therapy; Z88.1 Allergy status to other antibiotic agents; Z88.2 Allergy status to sulfonamides; D72.829 Elevated white blood cell count, unspecified; E03.9 Hypothyroidism, unspecified; E11.22 Type 2 diabetes mellitus with diabetic chronic kidney disease; E11.40 Type 2 diabetes mellitus with diabetic neuropathy, unspecified; N31.9 Neuromuscular dysfunction of bladder, unspecified; K59.09 Other constipation; E87.6 Hypokalemia; Z87.891 Personal history of nicotine dependence; N18.3 Chronic kidney disease, stage 3 (moderate); Z68.22 Body mass index [BMI] 22.0-22.9, adult
CPT/HCPCS: 10045; 10047

== ENCOUNTER 2018-06-05 03:46 | Inpatient (IN) | payer OTHER ==
[~2018-06-05] VITALS: Ht 104.1 cm; Wt 82.6 kg
--- NOTE | ~2018-06-05 | HC ---
[facility] [place] [address] CONSULTATION Name: DUKE VILLAGOMEZ Room #: 460- ADM IN .R.#: [id number] Admission: 06/05/18 Attend Phys: Iam Damon MD Discharge: Date of : 37 Report #: [id number] THIS REPORT FOR: //name// CC: Iam Mauroh [facility] DATE OF SERVICE: 06/09/2018 Infectious Disease Consultation ATTENDING PHYSICIAN: Iam Damon MD REASON FOR EVALUATION: Prostate abscess. HISTORY OF PRESENT ILLNESS: Chart reviewed, patient examined. This is an 82-year-old gentleman with an extensive medical history including some dementia, has longstanding suprapubic catheter in place, which has been complicated by recurrent urinary tract infections, some of which been due to multiple resistant organisms. He is in a long-term care facility. He was noted to have nausea with emesis, complaining of lower abdominal pain. Evaluation raised question of some prostatitis did have repeat CT head done yesterday, which showed question of a prostatic abscess. Urine culture with growth of Proteus. It is notable that he has been empirically started on levofloxacin adjusted for some renal insufficiency; however, return of culture noted the susceptibilities to suggest resistance to quinolones. He overall feels better. He denies significant amount of pain. He apparently had some obstipation that has improved as well. Denies significant pulmonary-related complaints. ALLERGIES: PENICILLIN, SULFA, SIMVASTATIN, MEPERIDINE. PAST MEDICAL HISTORY: Includes diabetes mellitus. It has been complicated by some vasculopathy. 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 SOCIAL HISTORY: Former smoker. No ethanol. FAMILY HISTORY: Noncontributory. REVIEW OF SYSTEMS: As above. Denies significant pulmonary-related complaints. PHYSICAL EXAMINATION: GENERAL: He is pleasant, cooperative. He has evidence speaking to him he has got dementia is in [id number] distress, appears chronically ill, somewhat undernourished. [facility] [address] [place] [address] CONSULTATION Name: DUKE VILLAGOMEZ Room #: 460-P [facility].#: [id number] Admission: 06/05/18 Attend Phys: Iam Damon MD Discharge: Date of : 37 Report #: [id number] VITAL SIGNS: Temperature 97, pulse 78, respirations 20, blood pressure 163/71. SKIN: Warm, dry, no rashes. HEENT: Unremarkable. NECK: Supple. LUNGS: Diminished, otherwise clear. HEART: Regular. I do not appreciate murmur. ABDOMEN: He has got a little bit of the pannus. He has got a suprapubic catheter in place. There is some mild maceration, perhaps some candidiasis as well at the site, not overtly tender. There are no peritoneal signs. GENITOURINARY AND RECTAL: Deferred. DATA: CT of the pelvis showed severe rectal impaction, marked dilatation of the rectum and distal sigmoid, circumferential rectal wall thickening, 3 cm fluid collection along the right anterior prostate gland, most compatible with prostate abscess. Urine culture: Growth of Proteus mirabilis. It is multi-resistant including ampicillin, ceftriaxone, ciprofloxacin. It is susceptible to the carbapenems and Bactrim, in vitro cefepime as well. Blood cultures are sterile thus far. Most recent CBC: White count of 11.3, H and H 8.0 and 24.6, platelets of 266. Electrolytes: Sodium 143, potassium 3.1, chloride 114, bicarbonate is 21, BUN and creatinine 30 and 1.8. ASSESSMENT AND PLAN: Prostatitis, perhaps prostate abscesses as well. We will adjust antimicrobial therapy, likely have urology address. At this point, he is not overtly toxic and may be a candidate for some percutaneous approach as well. <ELECTRONICALLY SIGNED> By: Refugio Case MD 06/10/18 0455 [id number] Refugio Case MD /nt
--- NOTE | ~2018-06-05 | EKG ---
[place] [address] [facility] [place] [address] ELECTROCARDIOGRAM REPORT Name: DUKE VILLAGOMEZ Piter Room #: 460-P ADM IN M.R.#: [id number] Admission: 06/05/18 Attend Phys: Kamaljit Stroud MD Discharge: Date of : 36 Report #: [id number] THIS REPORT FOR: //name// [facility] ED Test Date: 2018-06-05 Test Time: 04:15:05 Pat Name: DUKE VILLAGOMEZ Department: Room: [facility] Gender: M Booth Cleaner: DEEJAY GALVEZ : 1935 Requested By: Sid Vargas Order Number: [id number] MD: Mateo Miranda Measurements Intervals [place] Rate: 91 P: 162 CO: 198 QRS: -21 QRSD: 100 T: 94 QT: 431 QTc: 531 Interpretive Statements Sinus or ectopic atrial rhythm Borderline left axis deviation Borderline T wave abnormalities Prolonged QT interval Compared to ECG 11/04/2016 16:53:24 No significant change was found Electronically Signed On 06-05-2018 9:14:02 CDT by Mateo Miranda [email or web address] <ELECTRONICALLY SIGNED> By: Mateo Miranda MD, [facility] 06/05/18 0914 0415 0415 Mateo Miranda MD, [facility] /EPI
--- NOTE | ~2018-06-05 | HC ---
[facility] [place] [address] CONSULTATION Name: DUKE VILLAGOMEZ Room #: 460-P ADM IN M.R.#: [id number] Admission: 06/05/18 Attend Phys: Iam Damon MD Discharge: Date of : 37 Report #: [id number] THIS REPORT FOR: //name// CC: Iam Hudson CHIEF COMPLAINT: Possible prostatic abscess. HISTORY OF PRESENT ILLNESS: The patient is an 82-year-old gentleman who is being seen today at the request of Dr. Damon for evaluation and management of possible prostatic abscess. Specifically, he is an 82-year-old male hospice patient, who lives at [facility] who was brought in with nausea and vomiting on the . Recent CT scan raises the question of a possible prostatic abscess. He cannot really provide any meaningful history. He is able to tell me that he has had a suprapubic tube. He does report that he has had a suprapubic tube indwelling. ALLERGIES: Include AMPICILLIN, MEPERIDINE, SIMVASTATIN, SULFA, TRIMETHOPRIM. PAST MEDICAL HISTORY: Illnesses include chronic kidney disease, diabetes, peripheral vascular disease, hypertension, neuropathy, GERD, depression, arthritis, encephalopathy. PAST SURGICAL HISTORY: He has had a suprapubic tube placed and bilateral below knee amputations. SOCIAL HISTORY: He is a former smoker. Quality and duration is unknown. MEDICATIONS: I refer to the medication reconciliation sheet in his admission history and physical. PHYSICAL EXAMINATION: GENERAL: He is a comfortable appearing gentleman, sitting in bed. VITAL SIGNS: Temperature is 37.1, pulse 78, respirations 20, blood pressure 163/71. ABDOMEN: Protuberant with a suprapubic tube draining clear urine with no acute scrotal pathology. LABORATORY DATA: White count 11.3 thousand, hemoglobin 8.0, hematocrit 24.6, platelets 266,000. Sodium is 143, creatinine is 1.8, potassium is 3.1, chloride is 114, CO2 21, BUN 30. IMAGING DATA: CT scan with contrast shows a 3 cm fluid collection along the right anterior prostate gland, most compatible with a prostatic abscess. Upon review of his initial CT scan, it was probably present there, although this is with contrast and the previous films without IV contrast. [address] [address] CONSULTATION Name: DUKE VILLAGOMEZ Room #: 460-P [facility] IN .R.#: [id number] Admission: 06/05/18 Attend Phys: Iam Damon MD Discharge: Date of : 37 Report #: [id number] IMPRESSION: Probable prostatic abscess. It may be longstanding. PLAN: Given the size and location, I recommend interventional radiology evaluation of this and consider transperineal drainage. I will discuss this with the medical service. <ELECTRONICALLY SIGNED> By: Newton Gong MD 06/10/18 0750 [id number] MD jaclyn Gerber
[~2018-06-05 03:46] MED LIST changes: +GABAPENTIN 100100 MG PO
[2018-06-05 03:47] VITALS: BP 153/62
[2018-06-05 04:26] LABS: URINE BILIRUBIN NEGATIVE (Negative); URINE BLOOD 2+ (Negative); URINE CLARITY CLOUDY; URINE COLOR YELLOW; URINE GLUCOSE-RANDOM* NEGATIVE (Negative); URINE KETONES NEGATIVE (Negative); URINE NITRITE-REFLEX NEGATIVE (Negative); URINE PROTEIN (DIPSTICK) 1+ (Negative); URINE SPECIFIC GRAVITY 1.015 (1.005-1.035); URINE UROBILINOGEN 0.2 E.U./dl (0.2-1.0)
[2018-06-05 04:26] LABS: ABSOLUTE NEUTROPHILS 12.6 thou/uL (1.4-8.2); BASOPHILS 0.4 % (0.0-2.0); EOSINOPHILS 0.4 % (0.0-3.0); HEMATOCRIT 29.4 % (42.0-52.0); HEMOGLOBIN 9.5 gm/dL (14.0-18.0); LYMPHOCYTES 13.5 % (24.0-44.0); MCHC 32.3 g/dL (28.0-37.0); MCV 77.3 fL (80.0-100.0); MONOCYTES 3.1 % (1.0-8.0); PLATELET COUNT 337 thou/uL (150-400); POLYS 82.6 % (36.0-66.0); RDW 17.3 % (10.5-14.5); WBC 15.2 thou/uL (4.0-11.0)
[2018-06-05 04:30] LABS: URINE LEUKOCYTES-REFLEX 3+ (Negative)
[2018-06-05 04:32] LABS: ANION GAP 12 mmol/L (7-16); BUN 40 mg/dL (7-18); CALCIUM 8.3 mg/dL (8.5-10.1); CHLORIDE 105 mmol/L (98-107); CO2 20 mmol/L (21-32); CREATININE 2.1 mg/dL (0.7-1.3); GLUCOSE 212 mg/dL (74-106); POTASSIUM 3.1 mmol/L (3.5-5.1); SODIUM 137 mmol/L (136-145)
[2018-06-05 04:33] LABS: CASTS None Seen /LPF (None Seen); MUCUS 0-3 Light strn/LPF (None Seen); SQUAMOUS None Seen /LPF (0-3); URINE RBC >20 Many /HPF (0-2); URINE WBC-REFLEX >25 Many /HPF (0-5); WBC CLUMPS Packed (None Seen)
[2018-06-05 04:34] LABS: BACTERIA-REFLEX >30 Many /HPF (None Seen); TRIPLE PHOSPHATE CRYSTALS 4-10 Moderate /LPF (None Seen)
[2018-06-05 04:41] LABS: LIPASE 88 U/L (73-393); SGOT 17 U/L (15-37); SGPT 13 U/L (30-65); TOTAL BILIRUBIN 0.2 mg/dL (<0.1-1.0); TOTAL PROTEIN 7.7 g/dL (6.4-8.2); TROPONIN-I <0.06 ng/mL (<0.06)
[2018-06-05] MEDS ORDERED: NORCO 5-325 TA1 EACH PO ×2 (05:36→05:57)
[2018-06-05] MEDS ORDERED: CEPACOL SORE T1 EAC7 PO (05:36)
[2018-06-05] MEDS ORDERED: MILK OF MA2400 MG/10 PO (05:37)
[2018-06-05] MEDS ORDERED: ONDANSETRON HCL4 M2 PO (05:38)
[2018-06-05] MEDS ORDERED: BISAC-EVAC10 MG RECTAL (05:39)
[2018-06-05] MEDS ORDERED: SENNA8.6 MG PO (05:40)
[2018-06-05 07:10] VITALS: BP 159/78
[2018-06-05] MEDS ORDERED: LEVEMIR SUBQ (07:20)
[2018-06-05] MEDS ORDERED: PRILOSEC OTC20 MG PO (07:21)
[2018-06-05] MEDS ORDERED: FLONASE 0.05%50 MCG NASAL (07:24)
[2018-06-05] MEDS ORDERED: ZYRTEC 10 MG TA10 MG PO (07:26)
[2018-06-05] MEDS ORDERED: NOVOLOG100 UNIT/1 SUBQ (07:29)
[2018-06-05 08:15] VITALS: BP 149/73
[2018-06-05 15:28] VITALS: BP 128/41
[2018-06-05 19:34] VITALS: BP 124/85
[2018-06-06 04:44] LABS: CALCIUM 7.8 mg/dL (8.5-10.1); CREATININE 1.8 mg/dL (0.7-1.3); MAGNESIUM 2.1 mg/dL (1.8-2.4); POTASSIUM 3.1 mmol/L (3.5-5.1)
[2018-06-06 04:52] LABS: ABSOLUTE NEUTROPHILS 7.5 thou/uL (1.4-8.2); BASOPHILS 0.5 % (0.0-2.0); EOSINOPHILS 2.7 % (0.0-3.0); HEMATOCRIT 24.6 % (42.0-52.0); LYMPHOCYTES 23.9 % (24.0-44.0); MCH 25.3 pg (26.0-34.0); MCHC 32.5 g/dL (28.0-37.0); MCV 77.9 fL (80.0-100.0); MONOCYTES 6.9 % (1.0-8.0); PLATELET COUNT 266 thou/uL (150-400); RBC 3.15 mil/uL (4.50-6.00); RDW 17.3 % (10.5-14.5); WBC 11.3 thou/uL (4.0-11.0)
[2018-06-06 06:00] VITALS: BP 125/56
[2018-06-06 08:22] VITALS: BP 146/57
[2018-06-06 16:34] VITALS: BP 135/57
[2018-06-06 19:55] VITALS: BP 135/70
[2018-06-07 04:18] VITALS: BP 138/65
[2018-06-07 08:09] VITALS: BP 122/58
[2018-06-07 15:59] VITALS: BP 145/79
[2018-06-07 19:19] VITALS: BP 152/64
[2018-06-08 03:46] VITALS: BP 151/59
[2018-06-08 07:14] VITALS: BP 146/69
[2018-06-08 15:48] VITALS: BP 179/88
[2018-06-08 20:03] VITALS: BP 181/97
[2018-06-09 05:00] VITALS: BP 168/77
[2018-06-09 08:38] VITALS: BP 163/71
[2018-06-09 16:00] VITALS: BP 158/73
[2018-06-09 19:53] VITALS: BP 158/65
[2018-06-10 03:05] VITALS: BP 135/68
[2018-06-10 07:22] VITALS: BP 150/71
[2018-06-10 13:34] LABS: HEMATOCRIT 27.1 % (42.0-52.0); HEMOGLOBIN 8.8 gm/dL (14.0-18.0); MCH 25.2 pg (26.0-34.0); MCHC 32.5 g/dL (28.0-37.0); MCV 77.4 fL (80.0-100.0); RBC 3.5 mil/uL (4.50-6.00); RDW 17.7 % (10.5-14.5); WBC 8.2 thou/uL (4.0-11.0)
[2018-06-10 13:55] LABS: ALBUMIN 2.7 g/dL (3.4-5.0); CALCIUM 7.5 mg/dL (8.5-10.1); CREATININE 1.6 mg/dL (0.7-1.3); MAGNESIUM 1.9 mg/dL (1.8-2.4); TOTAL BILIRUBIN 0.2 mg/dL (<0.1-1.0); TOTAL PROTEIN 6.8 g/dL (6.4-8.2)
[2018-06-10 14:01] LABS: POTASSIUM 2.2 mmol/L (3.5-5.1)
[2018-06-10 16:00] VITALS: BP 147/74
[2018-06-10 19:27] VITALS: BP 143/71
[2018-06-11] VITALS (8 sets, daily range): BP systolic 153–190; BP diastolic 70–101
[2018-06-11 06:17] LABS: CALCIUM 7.5 mg/dL (8.5-10.1); CREATININE 1.6 mg/dL (0.7-1.3)
[2018-06-11 06:21] LABS: POTASSIUM 2.6 mmol/L (3.5-5.1)
[2018-06-12 04:16] VITALS: BP 139/65
[2018-06-12 05:39] LABS: HEMATOCRIT 25.5 % (42.0-52.0); HEMOGLOBIN 8.6 gm/dL (14.0-18.0); MCHC 33.6 g/dL (28.0-37.0); MCV 77.6 fL (80.0-100.0); RBC 3.29 mil/uL (4.50-6.00); WBC 9.7 thou/uL (4.0-11.0)
[2018-06-12 05:53] LABS: CALCIUM 7.5 mg/dL (8.5-10.1); CREATININE 1.6 mg/dL (0.7-1.3); MAGNESIUM 1.9 mg/dL (1.8-2.4)
[2018-06-12 05:59] LABS: POTASSIUM 2.7 mmol/L (3.5-5.1)
[2018-06-12 08:00] VITALS: BP 167/81
[2018-06-12 16:00] VITALS: BP 139/71
[2018-06-12 20:15] VITALS: BP 174/94
[2018-06-13 05:47] LABS: HEMATOCRIT 26.1 % (42.0-52.0); HEMOGLOBIN 8.7 gm/dL (14.0-18.0); MCH 25.5 pg (26.0-34.0); MCHC 33.3 g/dL (28.0-37.0); MCV 76.6 fL (80.0-100.0); RBC 3.4 mil/uL (4.50-6.00); RDW 17.8 % (10.5-14.5); WBC 11.2 thou/uL (4.0-11.0)
[2018-06-13 06:02] LABS: CALCIUM 7.6 mg/dL (8.5-10.1); CREATININE 1.6 mg/dL (0.7-1.3); MAGNESIUM 1.8 mg/dL (1.8-2.4)
[2018-06-13 06:15] VITALS: BP 153/70
[2018-06-13 10:18] VITALS: BP 175/87
[2018-06-13 16:27] VITALS: BP 174/71
[2018-06-13 20:02] VITALS: BP 163/93
[2018-06-14 01:11] VITALS: BP 133/69
[2018-06-14 05:28] VITALS: BP 156/81
[2018-06-14 06:29] LABS: HEMATOCRIT 27.4 % (42.0-52.0); MCH 25.3 pg (26.0-34.0); MCHC 32.9 g/dL (28.0-37.0); MCV 77.1 fL (80.0-100.0); RBC 3.55 mil/uL (4.50-6.00); RDW 18.3 % (10.5-14.5); WBC 18.8 thou/uL (4.0-11.0)
[2018-06-14 06:44] LABS: CALCIUM 7.8 mg/dL (8.5-10.1); CREATININE 1.5 mg/dL (0.7-1.3); MAGNESIUM 1.8 mg/dL (1.8-2.4)
[2018-06-14 06:46] LABS: POTASSIUM 2.6 mmol/L (3.5-5.1)
[2018-06-14 08:02] VITALS: BP 150/72
[2018-06-14 15:17] VITALS: BP 140/69
[2018-06-14 19:37] VITALS: BP 159/78
[2018-06-15 02:55] LABS: HEMATOCRIT 24.5 % (42.0-52.0); MCH 25.2 pg (26.0-34.0); MCHC 32.8 g/dL (28.0-37.0); RBC 3.18 mil/uL (4.50-6.00); RDW 17.7 % (10.5-14.5); WBC 18.4 thou/uL (4.0-11.0)
[2018-06-15 03:04] LABS: CALCIUM 7.7 mg/dL (8.5-10.1); CREATININE 1.4 mg/dL (0.7-1.3); MAGNESIUM 1.8 mg/dL (1.8-2.4); POTASSIUM 3.2 mmol/L (3.5-5.1)
[2018-06-15 03:53] VITALS: BP 129/55
[2018-06-15 07:39] VITALS: BP 146/82
[2018-06-15 15:27] VITALS: BP 132/70
[2018-06-15 19:05] VITALS: BP 134/50
[2018-06-16 05:08] VITALS: BP 155/71
[2018-06-16 05:10] LABS: ABSOLUTE NEUTROPHILS 6.9 thou/uL (1.4-8.2); BASOPHILS 0.8 % (0.0-2.0); EOSINOPHILS 4.4 % (0.0-3.0); HEMATOCRIT 22.5 % (42.0-52.0); HEMOGLOBIN 7.2 gm/dL (14.0-18.0); MCH 25.1 pg (26.0-34.0); MCHC 32.1 g/dL (28.0-37.0); MONOCYTES 6.4 % (1.0-8.0); PLATELET COUNT 270 thou/uL (150-400); POLYS 60.4 % (36.0-66.0); RBC 2.89 mil/uL (4.50-6.00); RDW 18.3 % (10.5-14.5); WBC 11.5 thou/uL (4.0-11.0)
[2018-06-16 08:29] VITALS: BP 147/63
[2018-06-16 09:15] LABS: ANISOCYTOSIS 2+
[2018-06-16 16:55] VITALS: BP 165/70
[2018-06-16 19:37] VITALS: BP 156/71
[2018-06-17 03:59] VITALS: BP 161/79
[2018-06-17 05:51] LABS: HEMATOCRIT 24.5 % (42.0-52.0); HEMOGLOBIN 7.9 gm/dL (14.0-18.0); MCH 25.1 pg (26.0-34.0); MCHC 32.3 g/dL (28.0-37.0); MCV 77.7 fL (80.0-100.0); RBC 3.15 mil/uL (4.50-6.00); RDW 17.4 % (10.5-14.5); WBC 10.7 thou/uL (4.0-11.0)
[2018-06-17 06:05] LABS: CALCIUM 7.7 mg/dL (8.5-10.1); CREATININE 1.3 mg/dL (0.7-1.3)
[2018-06-17 06:07] LABS: POTASSIUM 2.8 mmol/L (3.5-5.1)
[2018-06-17 08:00] VITALS: BP 156/82
[2018-06-17 16:00] VITALS: BP 149/78
[2018-06-17 20:39] VITALS: BP 153/83
[2018-06-18 00:24] LABS: HEMATOCRIT 25.6 % (42.0-52.0); HEMOGLOBIN 8.4 gm/dL (14.0-18.0); MCH 25.3 pg (26.0-34.0); MCHC 32.9 g/dL (28.0-37.0); MCV 76.9 fL (80.0-100.0); RBC 3.32 mil/uL (4.50-6.00); RDW 17.1 % (10.5-14.5); WBC 11.1 thou/uL (4.0-11.0)
[2018-06-18 00:32] LABS: CREATININE 1.3 mg/dL (0.7-1.3); POTASSIUM 3.3 mmol/L (3.5-5.1)
[2018-06-18 03:42] VITALS: BP 136/75
[2018-06-18 07:37] VITALS: BP 158/76
[2018-06-18] MEDS ORDERED: CEFDINIR300 MG PO (14:17)
[2018-06-18] MEDS ORDERED: FLAGYL500 MG PO (14:17)
== END 2018-06-18 16:56 | DRG 853 ==
LOC: ER 03:46 → EROBS 06:10 → 4W 06:10
PROVIDERS: Emergency Medicine; Hospitalist; Internal Medicine; Nurse Practitioner; Radiology Diagnostic Radiology; Specialist
PROC: B54MZZA Ultrasonography of Right Upper Extremity Veins, Guidance (ICD-10-PCS; principal; 2018-06-05)
PROC: 05HY33Z Insertion of Infusion Device into Upper Vein, Percutaneous Approach (ICD-10-PCS; principal; 2018-06-05)
PROC: 0V907ZZ Drainage of Prostate, Via Natural or Artificial Opening (ICD-10-PCS; 2018-06-11)
DX: A41.9 Sepsis, unspecified organism (principal); N17.0 Acute kidney failure with tubular necrosis; N39.0 Urinary tract infection, site not specified; N41.2 Abscess of prostate; K56.7 Ileus, unspecified; K56.600 Partial intestinal obstruction, unspecified as to cause; E11.51 Type 2 diabetes mellitus with diabetic peripheral angiopathy without gangrene; E11.22 Type 2 diabetes mellitus with diabetic chronic kidney disease; N18.9 Chronic kidney disease, unspecified; K21.9 Gastro-esophageal reflux disease without esophagitis; F32.9 Major depressive disorder, single episode, unspecified; M19.90 Unspecified osteoarthritis, unspecified site; H54.62 Unqualified visual loss, left eye, normal vision right eye; I12.9 Hypertensive chronic kidney disease with stage 1 through stage 4 chronic kidney disease, or unspecified chronic kidney disease; D64.9 Anemia, unspecified; E87.6 Hypokalemia; E11.65 Type 2 diabetes mellitus with hyperglycemia; E11.42 Type 2 diabetes mellitus with diabetic polyneuropathy; N41.9 Inflammatory disease of prostate, unspecified; E86.0 Dehydration; Z66 Do not resuscitate; Z51.5 Encounter for palliative care; E11.43 Type 2 diabetes mellitus with diabetic autonomic (poly)neuropathy; K31.84 Gastroparesis; E03.9 Hypothyroidism, unspecified; N31.9 Neuromuscular dysfunction of bladder, unspecified; K56.41 Fecal impaction; E87.8 Other disorders of electrolyte and fluid balance, not elsewhere classified; Z89.512 Acquired absence of left leg below knee; Z89.511 Acquired absence of right leg below knee; Z88.1 Allergy status to other antibiotic agents; Z79.4 Long term (current) use of insulin; Z88.0 Allergy status to penicillin; Z88.2 Allergy status to sulfonamides; Z88.8 Allergy status to other drugs, medicaments and biological substances; Z87.891 Personal history of nicotine dependence
CPT/HCPCS: 10045; 27001